=== PATIENT | female | born 1930 | race Caucasian/White ===

== ENCOUNTER 2017-09-03 14:00 | Outpatient (RCR) | payer MEDICARE, BC ==
--- NOTE | 2017-08-07 17:34 | PT INITIAL EVALUATION ---
MEDICAL DIAGNOSIS: Right leg and thigh pain TREATMENT DIAGNOSIS: Right leg and thigh pain, Low back pain with radiating DATE OF ONSET: 08/07/17 SUBJECTIVE: Rea is a 87 year-old female presenting to physical therapy following a month long onset of R anterior and lateral leg pain. Pt reports that the pain moves around but is generally on the R hip and down the side and front of the thigh into the knee. The pain occasionally goes down below the knee, but never reaches the ankle. Pt has a history of a R broken femur in 2010. Pain is currently a 2/10 in the anterior leg and groin, but goes down to a 0/10 with prolonged sitting or rest. Pt reports that pain increases when she first gets up from sitting or rest and slowly goes away with walking. REHAB PROBLEM LIST: Increased Pain Decreased ROM Decreased Endurance Decreased Function Decreased ADL's Decreased Mobility Decreased Gait PREVIOUS MEDICAL HISTORY: See EMR OBJECTIVE: Posture: Pt has slight forward trunk lean with ambulation, but otherwise posture is unremarkable. ROM: Lumbar screen: Flexion: full, ext: severe restrictions with pain into groin, L SB: full with pn on R hip, R SB: full, L rot: full with anterior hip pain on R side, R rot: full Special Tests: Lower Extremity Functional Scale (LEFS): 27/80 Mobility: Henry Lumbar Screen: Ext: pain peripheralized to R knee and increased intensity, flexion: pain centralized to the lumbar spine rated at 4/ 10 and then reduced completely. Gait: Onset of groin pain after 25 feet of ambulation. ASSESSMENT: Pt shows signs and symptoms consistent with lumbar derangement with impingement resulting in radiating pain into the R LE. Physical therapy is indicated to address the above listed impairments to improve pt function and ambulation. Short Term Goals In 1 week pt will centralize pain to the lumbar spine only with ambulation and ADL's for improved functional mobility. In 2 weeks pt will report no pain for improved functional mobility with ADL's. In 2 weeks pt will improve LEFS score to 32/80 or better for improved functional mobility with ADL's. Patient's Goals Decrease pain and improve function. PLAN: Patient to be seen for Manual Therapy/STM/MET Strengthening/condition Ice/Heat Range of Motion Spinal Stabilization Ultrasound Stretching Iontophoresis Neuromuscular Re-ed Closed Chain Program Electrical Stim Posture/Body mechanics Gait Trg/Balance Trg Biofeedback Home Exercise Program [facility]./Manual Traction Therapeutic Activities Pelvic Floor 3x/Week for 2 Weeks If you have any questions, comments, or concerns about this report or plan, please contact me at . Thank you, wSetha Sommer, PT, DPT, CLT MTDD
[~2017-09-03 14:00] MED LIST: ACET-1966 PO; ALE70 PO; ASPI-1267; ASPI-1471 PO; CHOL10005 PO; FUR40; HYDR-3140 PO; LEVO50; LEVO50 PO; LEVO50TA86 PO; LEVO75TA73 PO; LISI2.5T60; MULT-1187 PO; MULT-1335 PO; OMEG-97; OMEG500C7 PO; PENI-22 PO; PRED1DRO2 OP; SIM10 PO; SIM40 PO; SIMV10TA98 PO; TRA50 PO; UBID100C48 PO; [UNRECOGNIZED DRUG - CODE]
--- NOTE | 2017-09-03 14:35 | PT PLAN OF CARE ---
Physician: Andrew Bansal MD Patient is being seen: 2-3x/Week Therapist: Swetha Sommer, PT, DPT, CLT Medical Diagnosis: Right leg and thigh pain Treatment Diagnosis: Right leg and thigh pain, Low back pain with radiating Date of Onset: 08/07/17 Date of Initial Evaluation: 08/07/17 Date patient was last seen: 09/03/17 Number of treatments: 8 Number of cancellations/No shows: 1 INTERVENTIONS: Manual Therapy/STM/MET Strengthening/condition Ice/Heat Range of Motion Spinal Stabilization Ultrasound Stretching Iontophoresis Neuromuscular Re-ed Closed Chain Program Electrical Stim Posture/Body mechanics Gait Trg/Balance Trg Biofeedback Home Exercise Program Mech./Manual Traction Therapeutic Activities Pelvic Floor GOALS: In 1 week pt will centralize pain to the lumbar spine only with ambulation and ADL's for improved functional mobility. MET In 2 weeks pt will report no pain for improved functional mobility with ADL's. MET In 2 weeks pt will improve LEFS score to 32/80 or better for improved functional mobility with ADL's. MET PATIENT'S GOAL: Decrease pain and improve function. Status of Patient's Goals: 3/3 MET Patient Compliance: Excellent Prognosis: Good Reasons for discharge from therapy: Rea is to discharge from physical therapy at this time secondary to completion of 3/3 functional goals. Pt has had no pain in the leg or back for the last week and shows good compliance with HEP which she is to continue upon discharge. Rea shows improved overall function with improved mobility, muscular endurance, and strength. Posture: Pt has slight forward trunk lean with ambulation, but otherwise posture is unremarkable. ROM: Lumbar screen: Flexion: full, ext: minimally restricted, L SB: full, R SB: full, L rot: full, R rot: full Special Tests: Lower Extremity Functional Scale: 58/80 If you have any questions or concerns, please feel free to contact me at [phone]. Thank you, Swetha Sommer, PT, DPT, CLT SONU
== END 2017-09-03 18:00 | disposition home or self-care (01) ==
LOC: PT 14:00
PROVIDERS: ATTEND Orthopaedic Surgery
DX: M79.604 Pain in right leg (principal); M79.651 Pain in right thigh; M54.5 Low back pain
CPT/HCPCS: 97161

== ENCOUNTER → 2017-09-09 | Outpatient (CLI) | payer MEDICARE, BC ==
--- NOTE | 2017-09-09 11:36 | RADIOLOGY IMAGING REPORT ---
FACILITY: [facility] - [place] PATIENT NAME: Rea Nieto : 1930 MR: [id number] V: [id number] EXAM DATE: ORDERING PHYSICIAN: MOON VILLA TECHNOLOGIST: Location: [facility] [place] Patient: Rea Nieto : 1930 Visit/Account:[id number] Date of Sevice: 09/09/2017 Exam type: NECK SOFT TISSUE History: Difficulty swallowing, sore throat Comparison: None. Findings: The epiglottis does not appear swollen. There is mild ballooning of the hypopharynx. The retrophary ngeal soft tissues do not appear thickened. Does appear to be some soft tissue fullness in the regio n of the glottis. There are moderate spondylotic changes at at C5-6. Calcifications are identified in the left-sided the neck which may be vascular in etiology IMPRESSION: 1. No evidence of epiglottic swelling There is soft tissue fullness in the region of the glottis. This could simply represent superimposed shadows. If patient's symptoms persist however CT of the neck may be helpful Opacifications left-sided the neck may be vascular in etiology Report Dictated By: Shirley Parikh MD at 09/09/2017 11:29 AM Report E-Signed By: Shirley Parikh MD at 09/09/2017 11:32 AM WSN:[id number]
== END ==
LOC: RAD 10:20
PROVIDERS: ATTEND Family Medicine
DX: R10.13 Epigastric pain (principal)
CPT/HCPCS: 70360

== ENCOUNTER 2018-01-27 10:00 | Outpatient (RCR) | payer MEDICARE, BC ==
--- NOTE | 2017-11-04 16:19 | PT INITIAL EVALUATION ---
MEDICAL DIAGNOSIS: L shoulder pain, rotator cuff tear, dyskinesis TREATMENT DIAGNOSIS: Same DATE OF ONSET: 04/12/18 SUBJECTIVE: Rea Nieto presents to PT for L shoulder pain that comes and goes, insidious onset 6 months ago. She's right-handed. She denies radiating pain to the neck or L UE. Quick DASH 55% impaired. Pain location is L anterior and lateral shoulder and described as ache, sharp grab. Pain scale is 7 on a ten point pain scale. 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 REHAB PROBLEM LIST: Increased Pain, Disrupted Sleep, Decreased ROM, Strength, ADL's PREVIOUS MEDICAL HISTORY: Hip fracture and TN 2011, 1998 mastectomy for breast cancer, cholecystectomy, thyroid disorder, feet neuropathy. 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 OBJECTIVE: Posture: L shoulder protracted, 4" above table, standing protracted L shoulder, IR humerus, depressed shoulder, forward head posture. ROM: AROM L/R shoulder: flexion 85/115, scaption 122/115 deg., extension 45/55 deg., IR B T12, ER at 70 deg. scaption B 65 degrees. Mild reverse scapulohumeral rhythm. Strength: L supraspinatus, biceps 3+/5, pain, triceps 4-/5, IR 5-/5, ER 4-/5. Palpation: Painful L bicipital long head at the groove, supraspinatus and infraspinatus tendons, referred pain in the rhomboid major, LS. Tight pec. major and pec. minor, upper scapular muscles, serratus anterior. Special Tests: Hypomobile L shoulder complex. Cervical {ROM, compression without shoulder pain. ASSESSMENT: Rea Nieto presents with mild rotator cuff tear, bicipital and rotator cuff tendinitis, L shoulder pain limiting lifting, sleeping, ADL's including dressing, shampooing. She had less pain after manual therapy and heat. Short Term Goals 4 weeks: Rea dons her coat, shampoos hair with L shoulder pain 3-4/10, Quick DASH 40% impairment. 6 weeks: Rea sleeps without awakening due to L shoulder pain, dons her coat, seat belt, puts dishes away with L shoulder pain 0-/10. Patient's Goals No shoulder pain with all ADL's. PLAN: Patient to be seen for Manual Therapy, Strengthening/condition, Ice/Heat , Range of Motion, Stretching, Neuromuscular Re-ed, Electrical Stim, Gait Trg/ Balance Trg, Home Exercise Program 3x/Week for 6 Weeks Thank you for this referral. If you have any questions, comments, or concerns about this report or plan, please contact me at . [facility]
--- NOTE | 2017-11-25 11:04 | PT PLAN OF CARE ---
Physician: Dr. Andrew Bansal Patient is being seen: 3x/week Therapist: Bhumika Ford PT Medical Diagnosis: L shoulder pain, rotator cuff tear, dyskinesis Treatment Diagnosis: Same Date of Onset: 04/12/18 Date of Initial Evaluation: 11/04/17 Date patient was last seen: 11/25/17 Number of treatments: 10 Number of cancellations/No shows: 0 INTERVENTIONS: L shoulder AA/PROM, stretching, muscle balancing strengthening, Manual Therapy, Heat, Electrical Stim, Home Exercise Program GOALS: 4 weeks: Rea dons her coat, shampoos hair with L shoulder pain 3-4/10 (met), Quick DASH 40% impairment (progressing, 42%). 6 weeks: Rea sleeps without awakening due to L shoulder pain (progressing), dons her coat, seat belt, puts dishes away with L shoulder pain 0-1/10 ( progressing). PATIENT'S GOAL: No shoulder pain with all ADL's (progressing). Patient Compliance: Excellent Prognosis: Excellent Reasons for continuing therapy: S: Rea relates she has minimal daytime pain with all her ADL's, but L shoulder pain awakens her at night 2-4 times (>5/10 ache, grab). Quick DASH improved from 55% (11/04/17) to 42% today. Posture: L shoulder protracted, 3" above table, standing protracted L shoulder, less IR humerus, less depressed shoulder, forward head posture. ROM: AROM L shoulder: flexion 155/170, scaption 155/155 deg., extension 55/60 deg., IR B T12, ER at 70 deg. scaption 75/85 degrees. Strength: NT today Palpation: Painful L bicipital long head at the groove, supraspinatus and infraspinatus tendons. Special Tests: Improving L shoulder complex joint mobility. A/P: Rea Nieto is progressing with reduced pain, improved ADL tolerance, improving posture. If you agree, we'll continue gently 3x/week another 3 weeks. Thank you. SONU
--- NOTE | 2017-12-02 11:02 | PT PLAN OF CARE ---
Physician: Dr. Andrew Bansal Appointment: 12/03/17 Patient is being seen: 3x/week Therapist: Bhumika Ford PT Medical Diagnosis: L shoulder pain, rotator cuff tear, dyskinesia Treatment Diagnosis: Same Date of Onset: 04/12/18 Date of Initial Evaluation: 11/04/17 Date patient was last seen: 12/02/17 Number of treatments: 13 Number of cancellations/No shows: 0 INTERVENTIONS: L shoulder rotator cuff and scapular strengthening, ROM, stretching, e-stim, heat, HEP GOALS: 4 weeks: Rea dons her coat, shampoos hair with L shoulder pain 3-4/10 (met), Quick DASH 40% impairment (met, 13%). 6 weeks: Rea sleeps without awakening due to L shoulder pain (progressing), dons her coat, seat belt, puts dishes away with L shoulder pain 0-1/10 (met). PATIENT'S GOAL: No shoulder pain with all ADL's (progressing). Patient Compliance: Excellent Prognosis: Excellent Reasons for continuing therapy: S: Rea awakens 1-2x/night due to L shoulder pain, is doing ADL's without residual pain. Quick DASH 13%. Posture: Even shoulders ROM: AROM L shoulder: flexion, scaption 145 deg., extension 60 deg., IR L T8, ER at 70 deg. scaption 70 degrees. Strength: NT A/P: Rea Nieto is improving strength, function except sleep function. She needs to continue strengthening for home ADL's. If you agree, we'll continue 3x/ week to December 16, 2017 then DC PT to HEP. Thank you. SONU
--- NOTE | 2017-12-16 11:19 | PT PLAN OF CARE ---
Physician: Dr. Andrew Bansal Patient is being seen: 3x/week Therapist: Bhumika Ford PT Medical Diagnosis: L shoulder pain, rotator cuff tear, dyskinesis Treatment Diagnosis: Same Date of Onset: 04/12/18 Date of Initial Evaluation: 11/04/17 Date patient was last seen: 12/16/17 Number of treatments: 18 Number of cancellations/No shows: 0 INTERVENTIONS: Manual Therapy Strengthening/condition Heat Range of Motion/Stretching Electrical Stim Home Exercise Program GOALS: 4 weeks: Rea dons her coat, shampoos hair with L shoulder pain 3-4/10 (met), Quick DASH 40% (met, 18%). 6 weeks: Rea sleeps without awakening due to L shoulder pain (not met), dons her coat, seat belt, puts dishes away with L shoulder pain 0-1/ 10 (progressing). PATIENT'S GOAL: No shoulder pain with all ADL's (progressing). Patient Compliance: Excellent Prognosis: Excellent Reasons for continuing therapy: S: Rea reports she can put dishes in a high cupboard with L shoulder pain 3/10 , but at night her L shoulder has sharp pain 8/10 to dull ache 4-5/10. Quick DASH 18%. Posture: L shoulder mildly protracted, 3" above table. ROM: AROM L/R shoulder: flexion 160/165, ER 75/90 degrees. Strength:L rotator cuff 4-/4. Palpation: Painful L supraspinatus and infraspinatus tendons. Pec minor and LS still tight. Special Tests: Improving L shoulder mobility but not full. A/P: Rea Nieto continues with night time pain from her L shoulder partial tear. If you agree, we'll continue another 6 weeks, at a decreased frequency of 2x/week as e-stim and manual therapy are reducing incidents of night time pain. Thank you. SONU
[~2018-01-27 10:00] MED LIST changes: +HYDR30CR10 TP; +TRIA15OI20 TP
--- NOTE | 2018-01-27 10:44 | PT PLAN OF CARE ---
Physician: Dr. Andrew Bansal Patient is being seen: 2x/week Therapist: Bhumika Ford, PT Medical Diagnosis: L shoulder pain, rotator cuff tear, dyskinesis Treatment Diagnosis: Same Date of Onset: 04/12/18 Date of Initial Evaluation: 11/04/17 Date patient was last seen: 01/27/18 Number of treatments: 28 Number of cancellations/No shows: 0 INTERVENTIONS: L shoulder rotator cuff/scapular strengthening, ROM, Manual therapy, E-stim, HEP GOALS: 4 weeks: Rea dons her coat, shampoos hair with L shoulder pain 3-4/10 (met), Quick DASH 40% impairment (met, 18%). 6 weeks: Rea sleeps without awakening due to L shoulder pain (partially met, <1 min. of night time pain), dons her coat, seat belt, puts dishes away with L shoulder pain 0-1/10 (met). PATIENT'S GOAL: No shoulder pain with all ADL's (met). Patient Compliance: Excellent Prognosis: Excellent Reasons for discontinuing therapy: S: Rea relates she's doing all prior level of ADL's without L shoulder pain and more easily due to improved ROM. She has occasional L shoulder twinges at night. Quick DASH 5% impairment. Posture: Even shoulders, more retracted. ROM: A/PROM R shoulder: flexion 165/175, scaption 170/170 deg., extension 60/60 deg., IR T7/60, ER at 70 deg. scaption 85/85 degrees. Strength: L supraspinatus 5-/5, biceps 4/5, IR and ER 5/5. Palpation: Unremarkable about the L shoulder. Special Tests: L shoulder joint mobility WNL. A/P: Rea Nieto has improved ROM, strength, ADL tolerance and has mild night time shoulder ache that should resolve with time. I'll DC PT to shoulder HEP. Thank you. SONU
== END 2018-01-27 15:47 | disposition home or self-care (01) ==
LOC: PT 10:00
PROVIDERS: ATTEND Orthopaedic Surgery
DX: M75.102 Unspecified rotator cuff tear or rupture of left shoulder, not specified as traumatic (principal); M25.512 Pain in left shoulder; Z90.12 Acquired absence of left breast and nipple; Z85.3 Personal history of malignant neoplasm of breast; I25.2 Old myocardial infarction; Z90.49 Acquired absence of other specified parts of digestive tract; E07.9 Disorder of thyroid, unspecified; G62.9 Polyneuropathy, unspecified
CPT/HCPCS: 97010; 97110; 97140; 97162; G0283

== ENCOUNTER → 2018-01-29 | Outpatient (CLI) | payer MEDICARE, BC ==
--- NOTE | 2018-01-29 11:08 | RADIOLOGY IMAGING REPORT ---
FACILITY: [facility] PATIENT NAME: Rea Nieto : 1930 MR: [id number] V: [id number] EXAM DATE: ORDERING PHYSICIAN: MOON VILLA TECHNOLOGIST: Location: [facility] - [place] Patient: Rea Nieto : 1930 Visit/Account:[id number] Date of Sevice: 01/29/2018 DEXA Scan Clinical history: Osteopenia. Comparison: DEXA scan from 01/26/2017. LUMBAR SPINE: The bone mineral density (BMD) measured from L1-L4 correlates with a Z-score 0.9 and a T-score of -1 .7 which is osteopenia as defined by the World Health Organization. The corresponding risk of fractu re in the lumbar spine is 3-4 times compared with a young adult reference population. This value has increased by 2.5 % since the prior study. More than 5% change is considered significant. HIP: Bone mineral density (BMD) measured in the Left total hip region correlates with a Z-score 0.2 and a T-score of -2.5 which is borderline osteoporosis as defined by the World Health Organization. The corresponding risk of fracture in the hip is 6 times compared with a young adult reference population . The total hip value has increased by 6.3 % since the prior study. More than 5% change is considere d significant. Bone mineral density (BMD) measured in the Femoral Neck region measures 0.689 g/cm2. IMPRESSION: 1. Lumbar spine: Osteopenia. There has been No significant change in the bone mineral density since the previous exam. 2. Left Hip: Borderline osteoporosis. There has been significant increase in the bone mineral densi ty of the total hip since the previous exam. 3. Femoral Neck: Bone Mineral Density is 0.689 g/cm2 The next DEXA scan of this patient should include the following sites: L1-L4 and the left hip. FRAX? WHO Fracture Risk Assessment Tool link: <http://www.shef.ac.uk/FRAX/tool.jsp?locationValue=9> PLEASE NOTE: 1) The World Health Organization defines low BMD as follows: T-score Normal > -1 Osteopenia < -1 and > -2.5 Osteoporosis < -2.5 without fractures Established osteoporosis < -2.5 with fractures 2) In general, you may wish to consider: Diagnosis Treatment Follow-up DEXA Normal BMD Prevention 2-3 years Osteopenia Prevention/therapy 1-2 years Osteoporosis Therapy Yearly 3) Fracture risk estimated from the T-score is more accurate for vertebral fractures (often spontane ous) than for hip fractures. Report Dictated By: Woodrow Burciaga MD at 01/29/2018 9:44 AM Report E-Signed By: Woodrow Burciaga MD at 01/29/2018 11:04 AM AWILDAN:ARISTIDES
== END ==
LOC: RAD 07:00
PROVIDERS: ATTEND Family Medicine
DX: M85.88 Other specified disorders of bone density and structure, other site (principal); M81.0 Age-related osteoporosis without current pathological fracture
CPT/HCPCS: 77080

== ENCOUNTER 2018-02-08 20:16 | Emergency (ER) | payer MEDICARE, BC ==
--- NOTE | 2018-02-08 20:41 | ER Report ---
History and Physical Time Seen By MD: 20:35 Hx. of Stated Complaint: fell this morning, hit tub. has been in pain around ribs and back. did not hit head HPI/ROS CHIEF COMPLAINT: fall with left rib pain HISTORY OF PRESENT ILLNESS: This is an 87 year old female. She fell at home. Was getting out of the shower and fell, hitting left side against counter. Has bruising and pain with movement and breathing. No shortness of breath with this. No other injuries. She thinks she just slipped. No dizziness. No head injury. No nausea or vomiting. Allergies: Coded Allergies: tramadol (Verified Allergy, Severe, DIAPHORESIS, NAUSEATED, 02/08/18) erythromycin base (Verified Allergy, Intermediate, HIVES/RASH, 02/08/18) codeine (Verified Adverse Reaction, Severe, NAUSEA, 02/08/18) Home Meds Active Scripts Triamcinolone Acetonide 0.1% Oint 15 Gm Tube (TRIAMCINOLONE ACETONIDE 0.1% 15 GM TUBE) 15 Gm Oint...g., 1 VIJAY TP BID for 30 Days, #1 TUBE 2 Refills Apply to arms and back twice daily for 7-10 days. Do not use on face, neck, underarms, or groin. Prov:FILEMON MATTHEWS [facility] 10/15/17 Hydrocortisone 2.5 % 30 GM CREAM (Hydrocortisone 2.5 % 30 GM CREAM) 2.5 % Cream.appl, 1 VIJAY TP BID for 30 Days, #1 TUBE 1 Refill Use twice daily for about 7 days to ears, face, neck. Prov:FILEMON MATTHEWS [facility] 10/15/17 Reported Medications Multivitamin With Minerals (MULTIPLE VITAMIN) 1 Each Tablet, 1 EACH PO DAILY, TAB 05/09/16 Ubidecarenone (COQ-10) 100 Mg Capsule, 100 MG PO DAILY, CAPSULE 05/09/16 Cholecalciferol (Vitamin D3) (VITAMIN D3) 1,000 Unit Tablet, 1000 UNIT PO DAILY , TAB 05/09/16 [place]-3 Fatty Acids (FISH OIL) 500 Mg Capsule, 1000 MG PO DAILY, CAPSULE 05/09/16 Acetaminophen (TYLENOL) 325 Mg Tablet, 325 MG PO Q4H Y for PAIN/HEADACHE, TAB 05/09/16 Aspirin (ASPIR 81) 81 Mg Tablet.dr, 81 MG PO QDAY, TAB 03/22/14 Levothyroxine Sodium (LEVOTHYROXINE SODIUM) 75 Mcg Tablet, 75 MCG PO QODAY 03/22/14 Levothyroxine Sodium (LEVOTHYROXINE SODIUM) 50 Mcg Tablet, 50 MCG PO QODAY 03/22/14 Simvastatin (SIMVASTATIN) 10 Mg Tablet, 10 MG PO HS, TAB 03/22/14 Reviewed Nurses Notes: Yes Hx Smoking: No Smoking Status: Never Smoker Exposure to Second Hand Smoke?: No Hx Substance Use Disorder: No Hx Alcohol Use: Yes Constitutional Vital Sign - Last 24 Hours 02/08/18 02/08/18 02/08/18 02/08/18 20:25 20:27 20:31 20:46 Temp 98.0 Pulse 85 80 79 Resp 14 B/P (MAP) 144/72 144/72 (96) Pulse Ox 95 95 93 O2 Delivery Room Air 02/08/18 02/08/18 02/08/18 02/08/18 21:01 21:06 21:21 21:36 Pulse 80 76 67 ??? Pulse Ox 93 94 94 02/08/18 02/08/18 02/08/18 02/08/18 21:47 21:51 22:00 22:06 Pulse ? B/P (MAP) 135/71 (92) 124/85 (98) 02/08/18 02/08/18 02/08/18 02/08/18 22:21 22:30 22:36 22:51 Pulse ? B/P (MAP) 125/71 (89) Physical Exam General Appearance: The patient is alert, has no immediate need for airway protection and no current signs of toxicity. Eyes: Pupils equal and round no injection. ENT: Normal oral mucosa. Moist mucous membranes. Neck: Neck is supple and non tender. Respiratory: Lungs clear to auscultation but with pain on deep breathing and palpation over left lateral ribs. Cardiac: regular rate and rhythm Gastrointestinal: Abdomen is non-tender. Musculoskeletal: Extremities have full range of motion. Non tender. Skin: Has bruising and abrasion lateral left chest. DIFFERENTIAL DIAGNOSIS: After history and physical exam differential diagnosis was considered for fall with rib pain, suspicious for rib fractures. Medical Decision Making EKG/Imaging Imaging Two-view chest with 4 views of the left ribs INDICATION: Fall with left rib injury. COMPARISON: Chest CT dated July 31, 2016. FINDINGS: 2 view chest shows heart size within normal limits. Calcifications within the aortic knob. There is no focal infiltrate or consolidation. Hyperexpansion the lungs with chronic interstitial changes. Biapical pleural scarring. There is no pneumothorax or pleural effusion. Surgical clips project over the left axilla. Views of left ribs show minimally displaced fracture of the lateral left sixth rib, seventh rib, eighth, and ninth ribs. IMPRESSION: 1. No acute cardiopulmonary process. 2. Minimally displaced fractures of the left sixth, seventh, eighth, and ninth ribs. No visualized pneumothorax. Report Dictated By: Woodrow Burciaga MD at 02/08/2018 10:24 PM ED Course/Re-evaluation ED Course Patient has rib fractures as noted. Discussed with the patient. She will take some Tylenol and some Lortab if needed for severe pain. Recommended follow-up with their primary care provider. Decision to Disposition Date: Feb 08, 2018 Decision to Disposition Time: 22:57 Depart Departure Latest Vital Signs Vital Signs Date Time Temp Pulse Resp B/P (MAP) Pulse Ox O2 Delivery O2 Flow Rate FiO2 02/08/18 22:51 ??? 02/08/18 22:30 125/71 (89) 02/08/18 21:21 94 02/08/18 20:25 98.0 14 Room Air Impression: Primary Impression: Ribs, multiple fractures Condition: Improved Disposition: HOME OR SELF-CARE Referrals: MOON VILLA DO (PCP) Patient Instructions: Rib Fracture (ED) Additional Instructions: You have 4 rib fractures noted on your x-ray tonight. Take Tylenol as needed for pain. Use a heating pad or ice pack as needed for pain. Please call your regular doctor for a follow-up this week. Problem Qualifiers Primary Impression: Ribs, multiple fractures Encounter type: initial encounter Fracture type: closed Laterality: left Qualified Codes: S22.42XA - Multiple fractures of ribs, left side, initial encounter for closed fracture JACKIE RICARDO MD Feb 08, 2018 20:41
[2018-02-08 22:30] VITALS: BP 125/71
--- NOTE | 2018-02-08 22:41 | RADIOLOGY IMAGING REPORT ---
[place] [facility] [place] NAME: Rea Nieto : 1930 MR: [id number] V: [id number] EXAM DATE: ORDERING PHYSICIAN: JACKIE RICARDO TECHNOLOGIST: Location: [facility] Patient: Rea Nieto : 1930 Visit/Account:[id number] Date of Sevice: 02/08/2018 Two-view chest with 4 views of the left ribs INDICATION: Fall with left rib injury. COMPARISON: Chest CT dated July 31, 2016. FINDINGS: 2 view chest shows heart size within normal limits. Calcifications within the aortic knob. There is no focal infiltrate or consolidation. Hyperexpansion the lungs with chronic interstitial sadia nges. Biapical pleural scarring. There is no pneumothorax or pleural effusion. Surgical clips project over the left axilla. Views of left ribs show minimally displaced fracture of the lateral left sixth rib, seventh rib, eigh th, and ninth ribs. IMPRESSION: 1. No acute cardiopulmonary process. 2. Minimally displaced fractures of the left sixth, seventh, eighth, and ninth ribs. No visualized pn eumothorax. Report Dictated By: Woodrow Burciaga MD at 02/08/2018 10:24 PM Report E-Signed By: Woodrow Burciaga MD at 02/08/2018 10:37 PM WSN:[id number]
--- NOTE | 2018-02-08 22:41 | RADIOLOGY IMAGING REPORT ---
FACILITY: [facility] PATIENT NAME: Rea Nieto : 1930 MR: [id number] V: [id number] EXAM DATE: ORDERING PHYSICIAN: JACKIE RICARDO TECHNOLOGIST: [place] [facility] [place] : 1930 Visit/Account:[id number] Date of Sevice: 02/08/2018 Two-view chest with 4 views of the left ribs INDICATION: Fall with left rib injury. COMPARISON: Chest CT dated July 31, 2016. FINDINGS: 2 view chest shows heart size within normal limits. Calcifications within the aortic knob. There is no focal infiltrate or consolidation. Hyperexpansion the lungs with chronic interstitial sadia nges. Biapical pleural scarring. There is no pneumothorax or pleural effusion. Surgical clips project over the left axilla. Views of left ribs show minimally displaced fracture of the lateral left sixth rib, seventh rib, eigh th, and ninth ribs. IMPRESSION: 1. No acute cardiopulmonary process. 2. Minimally displaced fractures of the left sixth, seventh, eighth, and ninth ribs. No visualized pn eumothorax. Report Dictated By: Woodrow Burciaga MD at 02/08/2018 10:24 PM Report E-Signed By: Woodrow Burciaga MD at 02/08/2018 10:37 PM WSN:[id number]
== END 2018-02-08 23:06 | disposition home or self-care (01) ==
LOC: ER 20:40
DX: S22.42XA Multiple fractures of ribs, left side, initial encounter for closed fracture (principal); W01.198A Fall on same level from slipping, tripping and stumbling with subsequent striking against other object, initial encounter
CPT/HCPCS: 71046; 71100; 99283

== ENCOUNTER 2018-04-18 15:00 | Emergency (ER) | payer MEDICARE, BC ==
[~2018-04-18 15:00] MED LIST changes: +FLAX100041 PO
[2018-04-18 15:03] VITALS: BP 156/85
[2018-04-18] MEDS ORDERED: ACET-1966 PO (15:11)
--- NOTE | 2018-04-18 15:14 | ER Report ---
History and Physical Time Seen By MD: 15:11 Hx. 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 Patient lacerated her right index finger at the MCP joint, approximately 1 hour prior to arrival. She states she was unable to stop the bleeding, however upon arrival the bleeding was controlled. CMS intact distal to the injury. No other concerns at this time. Allergies: Coded Allergies: tramadol (Verified Allergy, Severe, DIAPHORESIS, NAUSEATED, 04/18/18) erythromycin base (Verified Allergy, Intermediate, HIVES/RASH, 04/18/18) codeine (Verified Adverse Reaction, Severe, NAUSEA, 04/18/18) Home Meds Reported Medications Acetaminophen (TYLENOL) 325 Mg Tablet, 325 MG PO PRN, TAB 04/18/18 Flaxseed Oil (FLAX SEED OIL) 1,000 Mg Capsule, 1200 MG PO, CAPSULE 04/07/18 Ubidecarenone (COQ-10) 100 Mg Capsule, 100 MG PO DAILY, CAPSULE 05/09/16 Cholecalciferol (Vitamin D3) (VITAMIN D3) 1,000 Unit Tablet, 1000 UNIT PO DAILY, TAB 05/09/16 Aspirin (ASPIR 81) 81 Mg Tablet.dr, 81 MG PO QDAY, TAB 03/22/14 Levothyroxine Sodium (LEVOTHYROXINE SODIUM) 75 Mcg Tablet, 75 MCG PO QODAY 03/22/14 Levothyroxine Sodium (LEVOTHYROXINE SODIUM) 50 Mcg Tablet, 50 MCG PO QODAY 03/22/14 Discontinued Reported Medications Multivitamin With Minerals (MULTIPLE VITAMIN) 1 Each Tablet, 1 EACH PO DAILY, TAB 05/09/16 Discontinued Scripts Triamcinolone Acetonide 0.1% Oint 15 Gm Tube (TRIAMCINOLONE ACETONIDE 0.1% 15 GM TUBE) 15 Gm Oint...g., 1 VIJAY TP BID for 30 Days, #1 TUBE 2 Refills Apply to arms and back twice daily for 7-10 days. Do not use on face, neck, underarms, or groin. Prov:FILEMON MATTHEWS NPC 10/15/17 Hydrocortisone 2.5 % 30 GM CREAM (Hydrocortisone 2.5 % 30 GM CREAM) 2.5 % Cream.appl, 1 VIJAY TP BID for 30 Days, #1 TUBE 1 Refill Use twice daily for about 7 days to ears, face, neck. Prov:FILEMON MATTHEWS NPC 10/15/17 Past Medical/Surgical History The patient has a past medical and surgical history of TIA, irregular heartbeat, myocardial infarction, hypercholesterolemia, exertional shortness of breath, GERD, hiatal hernia, left-sided mastectomy, arthritis, hip and femur fracture, wears glasses, hypothyroidism, appendectomy, tonsillectomy, cataract surgery. Reviewed Nurses Notes: Yes Hx Smoking: No Smoking Status: Never Smoker Exposure to Second Hand Smoke?: No Hx Substance Use Disorder: No Hx Alcohol Use: Yes Constitutional Vital Sign - Last 24 Hours 04/18/18 15:03 Temp 97.3 Pulse 82 Resp 16 B/P (MAP) 156/85 Pulse Ox 95 O2 Delivery Room Air Physical Exam General appearance: Alert no distress. Respiratory: Chest is non tender, lungs are clear to auscultation. Cardiac: Regular rate and rhythm. Integument rate: 1.5 cm laceration to the palmar side of the right index finger at the MCP joint. Bleeding is controlled. Flexion and extension are intact. DIFFERENTIAL DIAGNOSIS: After history and physical exam differential diagnosis was considered for laceration. Medical Decision Making ED Course/Re-evaluation ED Course The patient was omitted to room. A history of this were obtained. Differential diagnoses were considered. After examination patient to determine that she would benefit from sutures. I did repair the wound as noted below. Patient tolerated very well. The wound was dressed, we discussed signs and symptoms of infection, return to the ER or follow up with her primary care provider to get the sutures removed. Patient discussed understanding. Patient was discharged home. Procedure: Laceration repair. Verbal consent was obtained from the patient. The 1.5 cm laceration on the palmar side of the right hand at the MCP joint was anesthetized in the usual fashion. The wound was scrubbed, draped and explored to its base with a gloved finger. There were no deep structures involved. No tendon injury was identified. The wound was repaired with 3, simple interrupted sutures using 5-0 Prolene. The wound repair was simple. The procedure was performed by myself. Decision to Disposition Date: Apr 18, 2018 Decision to Disposition Time: 15:53 Depart Departure Latest Vital Signs Vital Signs Date Time Temp Pulse Resp B/P (MAP) Pulse Ox O2 Delivery O2 Flow Rate FiO2 04/18/18 15:03 97.3 82 16 156/85 95 Room Air Impression: Primary Impression: Laceration of right index finger Condition: Improved Disposition: HOME OR SELF-CARE Referrals: MOON VILLA DO (PCP) Patient Instructions: Acute Wound Care (ED), Finger Laceration (ED) Additional Instructions: Keep wound dry for 48 hours. Follow up with your primary care provider in the next 7 days to have sutures removed. Monitor for signs of infection; redness, swelling, heat, discharge, increasing pain or red streaking. Take Tylenol or Ibuprofen as needed for pain. Return to the ER with any concerns. You may change dressing as needed. Problem Qualifiers Primary Impression: Laceration of right index finger Encounter type: initial encounter Damage to nail status: without damage Foreign body presence: without foreign body Qualified Codes: S61.210A - Laceration without foreign body of right index finger without damage to nail, initial encounter SCOTTY WHITING ROCK CRUSHER-BC Apr 18, 2018 15:14
[2018-04-18] MEDS ORDERED: DIPHTH/TETANUS/ACEL. PERTUSSIS IM ONLY ONE (15:25)
== END 2018-04-18 16:03 | disposition home or self-care (01) ==
LOC: ER 15:16
DX: S61.210A Laceration without foreign body of right index finger without damage to nail, initial encounter (principal)
CPT/HCPCS: 90471; 90715; 99283

== ENCOUNTER → 2018-06-07 | Outpatient (CLI) | payer MEDICARE, BC ==
--- NOTE | 2018-06-08 16:42 | RADIOLOGY IMAGING REPORT ---
FACILITY: [facility] PATIENT NAME: ELIE HICKMAN : [id number] MR: [id number] V: [id number] EXAM DATE: ORDERING PHYSICIAN: MOON VILLA TECHNOLOGIST: Maria Del Rosario Bautista PROCEDURE: UNILATERAL DIGITAL SCREENING RIGHT MAMMOGRAM WITH CAD ASSISTED INTERPRETATION & 3D TOMOSYNTHESIS COMPARISON: Prior mammograms 05/20/17, 05/09/16, 05/08/15. INDICATIONS: SCREENING FINDINGS: Moderately dense heterogeneous fibroglandular tissue is seen throughout the Right breast. The parenchymal pattern has remained stable allowing for difference in mammographic technique & patient positioning. There is no evidence of malignant appearing mass, malignant appearing calcifications or other secondary sign of malignancy in the Right breast. DIAGNOSTIC CATEGORY 1--NEGATIVE. RECOMMENDATIONS: ROUTINE MAMMOGRAM AND CLINICAL EVALUATION. IMPRESSION: BIRADS 1: Negative. No significant abnormality of the Right breast is seen. Dictated by: Shirley Parikh M.D. on 06/07/2018 at 16:40 Transcribed by: DANIELA on 06/08/2018 at 9:41 Approved by: Shirley Parikh M.D. on 06/08/2018 at 16:41 [facility]
== END ==
LOC: MAMO 03:33
PROVIDERS: ATTEND Family Medicine
DX: Z12.31 Encounter for screening mammogram for malignant neoplasm of breast (principal)
CPT/HCPCS: 77063; 77067

== ENCOUNTER → 2018-08-06 | Outpatient (CLI) | payer MEDICARE, BC ==
--- NOTE | 2018-08-06 13:09 | RADIOLOGY IMAGING REPORT ---
FACILITY: [facility] - [place] PATIENT NAME: Rea Nieto : 1930 MR: [id number] V: [id number] EXAM DATE: ORDERING PHYSICIAN: MOON VILLA TECHNOLOGIST: Location: [facility] [place] Patient: Rea Nieto : 1930 Visit/Account:[id number] Date of Sevice: 08/06/2018 Exam type: HIP RIGHT History: The Thursday night, pain increased since previous fracture and right hip Comparison: May 03, 2014. Findings: Three views of the right hip are submitted. Again noted is a right hip arthroplasty with additional side plate and cerclage wires. There is no evidence of acute fracture, dislocation or prosthetic loo sening involving the right hip. Moderate osteoarthritic changes left hip again noted IMPRESSION: 1. Right hip arthroplasty noted with no evidence of acute fracture dislocation or prosthetic looseni ng. Moderate osteoarthritic changes of the left hip Report Dictated By: Shirley Parikh MD at 08/06/2018 1:02 PM Report E-Signed By: Shirley Parikh MD at 08/06/2018 1:05 PM WSN:[email or web address]
== END ==
LOC: RAD 12:20
PROVIDERS: ATTEND Family Medicine
DX: M16.12 Unilateral primary osteoarthritis, left hip (principal); Z96.641 Presence of right artificial hip joint

== ENCOUNTER 2019-01-19 10:15 | Outpatient (RCR) | payer MEDICARE, BC ==
--- NOTE | 2018-10-22 16:48 | PT INITIAL EVALUATION ---
MEDICAL DIAGNOSIS: R knee pain and weakness after a fall TREATMENT DIAGNOSIS: Same, altered gait, imbalance DATE OF ONSET: 08/04/18 SUBJECTIVE: Rea Nieto presents to PT for R knee pain and weakness after falling onto her right side in her bedroom, 08/04/18. She sustained a R hip and femoral fracture with PA in 2011 and has a R sunshine-LUCINA. Rea recently lost her and is receiving help from her friends for shopping, errands. She'd like to return to community ambulation, but feels her balance is too poor. Pain location is R lateral, anterior thigh, knee and described as sharp stabbing pain, ache. Pain scale is 5 on a ten point pain scale. Pain is worse with walking and better with heat. REHAB PROBLEM LIST: Increased Pain, Decreased ROM, Strength, Endurance, Balance, Function, Mobility, Impaired Bed Mobility and Transfers, Altered Gait PREVIOUS MEDICAL HISTORY: R hip, femoral fracture, PA, L masectomy, peripheral neuropathy OCCUPATION: Lives alone in a multi-level home, just returned to phase 3 cardiac rehab here. OBJECTIVE: Posture: Flexed hips and knees, ~30 degrees, valgus knees, flexed trunk. ROM: AROM R knee 25 (painful over pressure) - WNL. Hip PROM abd. 20 deg., add 25 deg., IR 20 deg., ER 40 deg., flexion 110 degrees, all painful with over pressure. Strength: R quad 2+/5, hamstrings 3/5, hip flexor 3+/5, ankle DF, inv., ever 4- /5. Palpation: Painful in the R IT band, greater trochanter, LCL, R ASIS tendons, quad muscle belly, retinaculum, proximal peroneals. Special Tests: Painful LCL with varus stress test, normal ligament play. ACL, MCL, PCL WNL. Lateral tracking patella with quad set. Mobility: Sit/stand with UE use, one attempt. R thigh pain with sit/supine. Gait: Rea ambulates with a foot-flat shuffling gait pattern, independent. She turns > 3 seconds safely. Dynamic Gait Index 12, non-reciprocal stair use with handrail. Balance: Double limb support only. ASSESSMENT: Rea Nieto presents with R LE tendinitis, greater trochanter bursitis, weakness, high fall risk, altered gait and imbalance. She is started on gentle quad and gluteal strengthening, found early ROM muscle stretching painful. Short Term Goals One month: Rea tolerates LE stretching to mid-ROM, ambulates with midfoot strike. Two months: Rea ambulates with heel strike, tolerates end-ROM stretching, reciprocal gait on stairs with handrail. Three months: Rea is a moderate fall risk, demonstrates corrective balance reactions on firm surfaces, denies R knee, thigh pain with ambulation. Patient's Goals Get rid of R knee/thigh pain with better ambulation. PLAN: Patient to be seen for Manual Therapy, Strengthening/condition, Ice/Heat, Range of Motion, Stretching, Iontophoresis, Neuromuscular Re-ed, Electrical Stim, Posture/Body mechanics, Gait Trg/Balance Trg, Home Exercise Program 2x/Week for 3 months Thank you for this referral. If you have any questions, comments, or concerns about this report or plan, please contact me at . SONU
--- NOTE | 2018-11-29 13:03 | PT PLAN OF CARE ---
Physician: Dr. Andrew Bansal Patient is being seen: 2x/week Therapist: Bhumika Ford PT Medical Diagnosis: R knee pain and weakness after a fall Treatment Diagnosis: Same, altered gait, imbalance Date of Onset: 08/04/18 Date of Initial Evaluation: 10/22/18 Date patient was last seen: 11/26/18 Number of treatments: 10 Number of cancellations/No shows: 1 INTERVENTIONS: Manual Therapy, Strengthening, Heat, Range of Motion/Stretching, Neuromuscular Re-ed, Gait Trg/Balance Trg GOALS: One month: Rea tolerates LE stretching to mid_ROM, ambulates with midfoot strike. both met Two months: Rea ambulates with heel strike, tolerates end-ROM stretching, reciprocal gait on stairs with handrail. all not met Three months: Rea is a moderate fall risk, demonstrates corrective balance reactions on firm surfaces (not met), denies R knee, thigh pain with ambulation (met). PATIENT'S GOAL: Get rid of R knee/thigh pain (met) with better ambulation (progressing). Patient Compliance: Excellent Prognosis: Excellent Reasons for continuing therapy: S: Rea now denies R hip/knee pain with sleep, ambulation, stair use. Posture: Flexed hips and knees, ~20 degrees, flexed trunk, can correct to upright trunk with verbal cues.. ROM: AROM R knee 15 - WNL. Hip PROM abd. 30 deg., pain free. Strength: R quad 4/5, hamstrings 4/5, hip flexor 4-/5, ankle DF, inv., ever 4- /5. Gait: TUG 11 seconds. Rea ambulates now with a mid foot strike now, flexes her trunk after 20 feet or when her vestibular system is stimulated with head movement. Balance: De [place] Torre Balance Assessment 41, a high fall risk. Rea has reduced WS, lifts a foot but doesn't hold single leg stand, catches her R fore foot with tapping a 6" step. R thigh pain with sit/supine. A/P: Rea Nieto has resolved pain, needs to improved strength, vestibular habituation, balance and gait to reduce fall risk. If you agree, we'll continue at 2x/week another 2 months to goals set. Thank you. [facility]ITAL[facility]uz[facility]
--- NOTE | 2018-12-31 13:13 | PT PLAN OF CARE ---
Physician: Dr. Andrew Bansal Patient is being seen: 2x/week Therapist: Bhumika Ford PT Medical Diagnosis: R knee pain and weakness after a fall Treatment Diagnosis: Same, altered gait, imbalance Date of Onset: 08/04/18 Date of Initial Evaluation: 10/22/18 Date patient was last seen: 12/31/18 Number of treatments: 20 Number of cancellations/No shows: 1 INTERVENTIONS: Strengthening/condition, Neuromuscular Re-ed, Gait Trg/Balance Trg, Home Exercise Program GOALS: One month: Rea tolerates LE stretching to mid-ROM, ambulates with midfoot strike. both met Two months: Rea ambulates with heel strike (progressing), tolerates end-ROM stretching (met), reciprocal gait on stairs with handrail. (met) Three months: Rea is a moderate fall risk (met), demonstrates corrective balance reactions on firm surfaces (met), denies R knee, thigh pain with ambulation (met). PATIENT'S GOAL: Get rid of R knee/thigh pain (met) with better ambulation (progressing). Patient Compliance: Excellent Prognosis: Excellent Reasons for continuing therapy: S: Rea denies R knee or thigh pain, she denies falls. Posture: Flexed hips and knees, ~20 degrees, flexed trunk. ROM: AROM R knee 10 - WNL. Strength: R quad 4+/5, hamstrings 4/5, hip flexor 4+/5, ankle DF, inv., ever 4+/5. Gait: Rea now ambulates with late heel strike to toe off, even stride, discernible change of gait speed. She turns >4 seconds with control. Ambulation over uneven surfaces is slow, UE extension, small steps with feet not clearing the ground. TUG 10 seconds. Gait with head motion and turns without dizziness now. Balance: De [place] Torre Balance Assessment 47/56, a normal fall risk. Functional reach improved to 10", full WS R and L. Stepping reactions are present but slow. Single leg stand 3 sec. R, 2 seconds L. Mobility: Sit/stand with UE use, one attempt, no pain. A/P: Rea Nieto is improving R knee ROM, strength, has integrated her vestibular system with gait, is less of a fall risk. She needs to work on gait with uneven surfaces, improve balance stepping reactions. If you agree, we'll continue 2x/week 3 weeks then DC to [facility]. Thank you. SONU
--- NOTE | 2019-01-19 10:54 | PT PLAN OF CARE ---
Physician: Dr. Andrew Bansal Patient is being seen: 2x/week Therapist: Bhumika martinez, PT Medical Diagnosis: R knee pain and weakness after a fall Treatment Diagnosis: Same, altered gait, imbalance Date of Onset: 08/04/18 Date of Initial Evaluation: 10/22/18 Date patient was last seen: 01/19/19 Number of treatments: 25 Number of cancellations/No shows: 0 INTERVENTIONS: Therapeutic Exercise, Balance and Gait Training, Neuro Re- education GOALS: All met: One month: Rea tolerates LE stretching to mid-ROM, ambulates with midfoot strike. Two months: Rea ambulates with heel strike, tolerates end-ROM stretching, reciprocal gait on stairs with handrail. Three months: Rea is a moderate fall risk, demonstrates corrective balance reactions on firm surfaces, denies R knee, thigh pain with ambulation. PATIENT'S GOAL: Met: Get rid of R knee/thigh pain with better ambulation. Patient Compliance: Excellent Prognosis: Excellent Reasons for discontinuing therapy: S: Rea denies R knee or thigh pain. She's using reciprocating gait with stairs with handrail, shopping and carrying her own groceries and doing prior level of function. She plans to return to cardiac rehab classes. O: Gait Rea ambulates with heel strike B, feet pass each other, still flexed knees. Balance: De [place] Torre Balance Assessment 55/56, normal fall risk. A/P: Rea Nieto has improved gait, function, balance. I'll DC PT. Thank you. SONU
== END 2019-01-20 ==
LOC: PT 10:15
PROVIDERS: ATTEND Orthopaedic Surgery
DX: M25.561 Pain in right knee (principal); R53.1 Weakness; R26.89 Other abnormalities of gait and mobility; I25.2 Old myocardial infarction; Z91.81 History of falling; Z96.641 Presence of right artificial hip joint
CPT/HCPCS: 97010; 97110; 97112; 97140; 97161; G0283